=== PATIENT | female | born 1950 | race Caucasian/White ===

== ENCOUNTER 2018-04-13 20:29 | Emergency (ER) | payer MEDICAID ==
[~2018-04-13] VITALS: Ht 160 cm; Wt 73.0 kg
[2018-04-13 20:31] VITALS: BP 189/77
== END 2018-04-13 20:58 | disposition left against medical advice (07) ==
LOC: ER 20:29
DX: R06.02 Shortness of breath (principal); Z53.21 Procedure and treatment not carried out due to patient leaving prior to being seen by health care provider
CPT/HCPCS: 71046; 93005

== ENCOUNTER 2018-12-28 17:08 | Emergency (ER) | payer MEDICARE, MEDICAID ==
[~2018-12-28] VITALS: Ht 160 cm; Wt 77.3 kg
[~2018-12-28 17:08] MED LIST: CEPH500C5 PO
[2018-12-28] MEDS ORDERED: ondansetron 4mg rapidly disintigrating tab PO ONE (18:40)
[2018-12-28] MEDS ORDERED: ipratropium/albuterol 3ml nebule NEB ONE (18:40)
[2018-12-28] MEDS ORDERED: sulfamethoxazole/trimethoprim DS (800/160mg) tablet PO ONE (18:40)
[2018-12-28] MEDS ORDERED: dexamethasone 4mg tablet PO ONE (18:40)
[2018-12-28] MEDS ORDERED: PRED20TA PO (18:42)
[2018-12-28] MEDS ORDERED: SULF1TAB49 PO (18:42)
[2018-12-28 19:11] VITALS: BP 133/89
== END 2018-12-28 19:14 | disposition home or self-care (01) ==
LOC: ER 17:09
DX: J44.1 Chronic obstructive pulmonary disease with (acute) exacerbation (principal); L03.116 Cellulitis of left lower limb; Z79.2 Long term (current) use of antibiotics; Z79.899 Other long term (current) drug therapy
CPT/HCPCS: 93005; 94640; 94760; 99284; J8540

== ENCOUNTER 2018-12-30 12:28 | Emergency (ER) | payer MEDICARE, MEDICAID ==
[~2018-12-30] VITALS: Ht 160 cm; Wt 77.0 kg
[~2018-12-30 12:28] MED LIST changes: +PRED20TA PO; +SULF1TAB49 PO
[2018-12-30 13:06] LABS: BASOPHILS % (AUTO) 0.3 % (0-1); EOSINOPHILS % (AUTO) 0.1 % (0-6); HEMATOCRIT 42.6 % (35.0-45.0); HEMOGLOBIN 13.7 g/dl (12.0-16.0); LYMPHOCYTES # (AUTO) 1.1 X10'3 (1.1-4.8); LYMPHOCYTES % (AUTO) 6.9 % (21-51); MEAN CORPUSCULAR HEMOGLOBIN 28.4 PG (27.0-31.0); MEAN CORPUSCULAR HGB CONC 32.1 g/dL (33.0-36.5); MEAN CORPUSCULAR VOLUME 88.4 FL (78-98); MEAN PLATELET VOLUME 8.2 FL (7.4-10.4); MONOCYTES # (AUTO) 0.4 X10'3 (0-0.9); MONOCYTES % (AUTO) 2.6 % (2-12); NEUTROPHILS # (AUTO) 14.6 X10'3 (1.8-7.7); NEUTROPHILS % (AUTO) 90.1 % (42-75); PLATELET COUNT 319 X10'3 (140-440); RED BLOOD COUNT 4.81 X10'6 (4.20-5.60); RED CELL DISTRIBUTION WIDTH 15.8 % (11.5-14.5); WHITE BLOOD COUNT 16.2 X10'3 (4.5-11.0)
[2018-12-30 13:18] LABS: ALANINE AMINOTRANSFERASE 26 U/L (12-78); ALBUMIN 3.5 G/DL (3.4-5.0); ALBUMIN/GLOBULIN RATIO 0.7 (1.1-1.5); ALKALINE PHOSPHATASE 115 IU/L (46-116); ANION GAP 10 (8-16); ASPARTATE AMINO TRANSFERASE 15 U/L (10-37); BILIRUBIN,TOTAL 0.2 MG/DL (0.1-1.0); BLOOD UREA NITROGEN 22 MG/DL (7-18); BUN/CREATININE RATIO 21.2 (6.6-38.0); CALCIUM 8.9 MG/DL (8.5-10.1); CHLORIDE 102 MMOL/L (99-107); CREATININE 1.04 MG/DL (0.40-0.90); GLUCOSE 120 MG/DL (70-104); POTASSIUM 4.5 MMOL/L (3.5-5.1); SODIUM 138 MMOL/L (135-145); TOTAL CARBON DIOXIDE 26.1 MMOL/L (24-32); TOTAL PROTEIN 8.3 G/DL (6.4-8.2); eGFR 52 ML/MIN
[2018-12-30] MEDS ORDERED: methylPREDNISolone sod succ 125mg/2ml vial IV ONE (13:20)
[2018-12-30] MEDS ORDERED: ipratropium/albuterol 3ml nebule NEB ONE (13:20)
[2018-12-30] MEDS ORDERED: albuterol 2.5 MG/3 ML nebule NEB ONE (13:20)
[2018-12-30 14:14] VITALS: BP 148/95
== END 2018-12-30 14:17 | disposition home or self-care (01) ==
LOC: ER 12:28
DX: J96.20 Acute and chronic respiratory failure, unspecified whether with hypoxia or hypercapnia (principal); J44.1 Chronic obstructive pulmonary disease with (acute) exacerbation; F17.200 Nicotine dependence, unspecified, uncomplicated; Z79.899 Other long term (current) drug therapy
CPT/HCPCS: 36415; 71046; 80053; 83605; 83880; 85025; 87040; 93005; 94640; 94760; 96374; 99284; J2930

== ENCOUNTER 2021-06-29 07:50 | Emergency (ER) | payer BC, MEDICAID ==
[~2021-06-29] VITALS: Ht 157.5 cm; Wt 72.7 kg
[2021-06-29] MEDS ORDERED: apixaban 5mg tablet PO STA (08:27)
--- NOTE | 2021-06-29 08:41 | NUR ---
Cleaned surgical wound, applied xeroform on top of triple abx ointment, and an occulsive/protective dressing.
--- NOTE | 2021-06-29 08:48 | NUR ---
Pt up to bedside commode.
[2021-06-29 08:54] LABS: BASOPHILS # (AUTO) 0.1 X10'3 (0-0.2); BASOPHILS % (AUTO) 0.5 % (0-1); EOSINOPHILS # (AUTO) 0.2 X10'3 (0-0.9); EOSINOPHILS % (AUTO) 2.1 % (0-6); HEMATOCRIT 35.2 % (35.0-45.0); HEMOGLOBIN 11.3 g/dl (12.0-16.0); LYMPHOCYTES # (AUTO) 1.3 X10'3 (1.1-4.8); LYMPHOCYTES % (AUTO) 12.3 % (21-51); MEAN CORPUSCULAR HEMOGLOBIN 28.1 PG (27.0-31.0); MEAN CORPUSCULAR HGB CONC 32.2 g/dL (33.0-36.5); MEAN CORPUSCULAR VOLUME 87.3 FL (78-98); MEAN PLATELET VOLUME 6.9 FL (7.4-10.4); MONOCYTES # (AUTO) 0.8 X10'3 (0-0.9); MONOCYTES % (AUTO) 7.6 % (2-12); NEUTROPHILS # (AUTO) 8.5 X10'3 (1.8-7.7); NEUTROPHILS % (AUTO) 77.5 % (42-75); PLATELET COUNT 407 X10'3 (140-440); RED BLOOD COUNT 4.03 X10'6 (4.20-5.60); RED CELL DISTRIBUTION WIDTH 17.9 % (11.5-14.5)
--- NOTE | 2021-06-29 09:03 | NUR ---
Vascular at bedside. Blood thinner med administered.
--- NOTE | 2021-06-29 09:05 | NUR ---
Left leg significantly more swollen on physical exam. Extremity warm to touch, +3 pitting edema. Pulses present and marked
[2021-06-29 09:08] LABS: ALANINE AMINOTRANSFERASE 19 U/L (12-78); ALBUMIN 2.9 G/DL (3.4-5.0); ALBUMIN/GLOBULIN RATIO 0.6 (1.1-1.5); ALKALINE PHOSPHATASE 110 IU/L (46-116); ANION GAP 9 (8-16); ASPARTATE AMINO TRANSFERASE 12 U/L (10-37); BILIRUBIN,TOTAL 0.1 MG/DL (0.1-1.0); BLOOD UREA NITROGEN 14 MG/DL (7-18); CALCIUM 8.7 MG/DL (8.5-10.1); CHLORIDE 102 MMOL/L (99-107); GLUCOSE 92 MG/DL (70-104); POTASSIUM 4.2 MMOL/L (3.5-5.1); SODIUM 141 MMOL/L (135-145); TOTAL CARBON DIOXIDE 30.2 MMOL/L (24-32); TOTAL PROTEIN 7.5 G/DL (6.4-8.2); eGFR 82 ML/MIN
[2021-06-29] MEDS ORDERED: HYDR-3965 PO (09:28)
[2021-06-29 09:57] VITALS: BP 142/70
== END 2021-06-29 09:59 | disposition home or self-care (01) ==
LOC: ER 07:50
DX: M25.552 Pain in left hip (principal); M66.0 Rupture of popliteal cyst; J44.9 Chronic obstructive pulmonary disease, unspecified; Z79.899 Other long term (current) drug therapy
CPT/HCPCS: 36415; 80053; 85025; 93971; 99284

== ENCOUNTER 2022-09-21 15:35 | Emergency (ER) | payer BC, MEDICAID ==
[~2022-09-21] VITALS: Ht 160 cm; Wt 65.9 kg
[2022-09-21 16:09] VITALS: BP 167/92
[2022-09-21] MEDS ORDERED: acetaminophen 325mg tablet PO ONE (16:30)
== END 2022-09-21 17:30 | disposition home or self-care (01) ==
LOC: ER 15:37
DX: M25.511 Pain in right shoulder (principal); R07.81 Pleurodynia; W01.10XA Fall on same level from slipping, tripping and stumbling with subsequent striking against unspecified object, initial encounter; Y93.89 Activity, other specified; Y92.89 Other specified places as the place of occurrence of the external cause; Y99.8 Other external cause status
CPT/HCPCS: 71250; 73030; 99284